=== PATIENT | female | born 1980 | race Caucasian/White ===

== ENCOUNTER 2020-05-05 20:25 | Inpatient (IN) | payer SELFPAY ==
[2020-05-05] MEDS ORDERED: Morphine 4 MG/ML VIAL ONE ×2 (21:04→22:30)
[2020-05-05] MEDS ORDERED: Lorazepam 2 MG/ML VIAL ONE (21:04)
[2020-05-05] MEDS ORDERED: Ketorolac Tromethamine 30 MG/ML VIAL ONE (21:04)
[2020-05-05] MEDS ORDERED: Ondansetron PF 4 MG/2 ML Vial ONE ×2 (21:04→22:46)
--- NOTE | 2020-05-05 21:15 | RAD ---
Chest AP view INDICATION: Chest pain with shortness of breath COMPARISON: None FINDINGS: Lungs: There is focal eventration of the hemidiaphragms. No acute airspace opacity is evident. Cardiac silhouette: The cardiomediastinal silhouette appears within normal limits. Pulmonary vasculature: Normal Pleural spaces: No pleural effusion or pneumothorax is demonstrated. Upper abdomen: No abnormality seen. Osseous structures: No acute osseous abnormality. Additional findings: None. IMPRESSION: No acute cardiopulmonary abnormality.
[2020-05-05 21:21] LABS: #Basophils 0.1 thou/uL (0.0-0.2); #Eosinphils 0.3 thou/uL (0.0-0.7); #Lymphocytes 5.4 thou/uL (1.20-3.40); %Basophils 0.8 % (0.0-1.0); %Eosinophils 1.5 % (0.0-10.0); %Monocytes 6.1 % (0.0-10.0); %Neutrophils 59.6 % (42.0-75.0); Hemoglobin 10.8 g/dL (12.0-16.0); Mean Corpuscular HGB CONC 33.2 g/dL (32.0-36.0); Mean Corpuscular Hemoglobin 26.4 pg (27.0-31.0); Mean Corpuscular Volume 79.6 fL (78.0-98.0); Mean Platelet Volume 7.1 fL (7.4-10.4); Platelet Count 541 thou/uL (130-400); Red Blood Cell (RBC) Count 4.07 mill/uL (4.20-5.40); White Blood Cell (WBC) Count 16.8 thou/uL (4.8-10.8)
[2020-05-05 21:31] LABS: Bilirubin Negative (Negative); Blood, Urine Negative (Negative); Clarity Clear (Clear); Glucose, Urine (Dipstick) Normal (Negative); Ketone, Urine Negative (Negative); Leukocyte Negative Leu/uL (Negative); Nitrite Negative (Negative); Protein, Urine (Dipstick) Negative (Neg-Trace); Specific Gravity, Urine 1.009 (1.002-1.036); Urobilinogen Normal mg/dL (Less than 2)
[2020-05-05 21:39] LABS: ALT (SGPT) 23 U/L (8-55); AST (SGOT) 29 U/L (5-34); Albumin 4.1 g/dL (3.5-5.0); Alkaline Phosphatase 78 U/L (40-110); Anion Gap 18 mmol/L (10-20); BUN (Urea Nitrogen) 15 mg/dL (7.0-18.7); Bilirubin, Total 0.3 mg/dL (0.2-1.2); CK (CPK) 532 U/L (29-168); Calc. Creatinine Clearance 0 mL/min (70-130); Calcium 8.8 mg/dL (7.8-10.44); Carbon Dioxide 15 mmol/L (22-29); Chloride 108 mmol/L (98-107); Estimated GFR-MDRD 62; Globulin 3.2 g/dL (2.4-3.5); Glucose 107 mg/dL (70-105); Lipase 16 U/L (8-78); Potassium 3.5 mmol/L (3.5-5.1); Protein, Total 7.3 g/dL (6.0-8.3); Sodium 137 mmol/L (136-145)
--- NOTE | 2020-05-05 21:56 | ULT ---
RIGHT UPPER QUADRANT ULTRASOUND CLINICAL HISTORY: Right upper quadrant pain. COMPARISON: None FINDINGS: Liver:Normal echotexture without focal mass. Intrahepatic bile ducts: No intrahepatic or extrahepatic biliary dilation.; Common bile duct: 3.6 mm. Gallbladder: No intraluminal stones are demonstrated. The gallbladder wall is mildly thickened. No pe richolecystic fluid is evident. Horton's sign:Positive Main portal vein:Patent with hepatopedal flow. Pancreas:Obscured by overlying bowel gas Right kidney: Right kidney measures 12.3 x 4.5 x 5.6 cm. No focal renal lesion or hydronephrosis. Additional findings: None. IMPRESSION: Mild gallbladder wall thickening with report of a sonographic Horton sign is nonspecific. No perichol ecystic fluid or intraluminal stones is demonstrated. Acalculus cholecystitis cannot be entirely excluded. A HIDA scan may be helpful for further evaluation.
[2020-05-06 02:13] VITALS: BMI 43.7
--- NOTE | 2020-05-06 02:13 | PDOC.HHP ---
Hospitalist HPI - History of Present Illness RUQ/Epigastric pain History of Present Illness: ADMISSION DATE: 05/06/2020 TIME OF ASSESSMENT: 0030 PRIMARY CARE PHYSICIAN: CHIEF COMPLAINT: Dr. Collins HPI: This is a 39-year-old woman who presents to the emergency department, brought by EMS, with increasing abdominal discomfort that started several months ago but has become constant and gradually worsening in the last week. Patient reports having issues with her gallbladder during previous pregnancies. Still has her gallbladder in place and was never told she had gallstones. In fact she states imaging done in the past was unremarkable. She has had chronic issues with intermittent right upper quadrant discomfort especially when she overeats or eats heavier meals. In the last several months the pain has been more frequent but manageable with her diet. Patient states since 1 week ago ago it has been essentially constant with no association to her meals. The pain is a 7 out of 10 in severity and primarily in the right upper quadrant and epigastric area. She also developed chills but denies any fevers. She has her temperature checked daily at work. She developed an episode of nausea and vomiting yesterday. Denies any hematemesis. She last moved her bowels yesterday morning and states that they were loose. No bright red blood per rectum. She reports having irregular bowel movements at baseline with her stools fluctuating between constipation and diarrhea. ED COURSE: In the emergency department she had an EKG that showed normal sinus rhythm. No ST changes or T wave abnormalities. Labs notable for a white cell count of 16.8, hemoglobin 10.8, hematocrit 32.4, platelets 541, neutrophils 59.6%. BUN 15, creatinine 1.01, GFR 62. LFTs unremarkable. Lipase normal. CK elevated at 532. Troponin negative. Urinalysis was done and unremarkable. Right upper quadrant ultrasound showed mild gallbladder wall thickening, positive Horton sign, HIDA scan recommended for further evaluation. Chest x-ray showed no acute cardiopulmonary abnormality. In the emergency department she received ondansetron 8 mg, morphine 4 mg IV x2 for pain as well as Toradol 30 mg IV. She has received 2 L of normal saline. For anxiety she was given 1 mg of Ativan IV. PAST MEDICAL HISTORY: Anxiety Morbid obesity Bipolar disorder, history of inpatient psychiatric admissions Depression Right sciatic pain Tobacco use Degenerative disc disease History of ovarian tumor/torsion requiring blood oophorectomy Hyperlipidemia PAST SURGICAL HISTORY: Right oophorectomy x3 SOCIAL HISTORY: Patient currently smokes 1 pack/day. Denies any alcohol consumption. She states she stopped drinking several months ago as it was making her depression worse. Denies any drug use. FAMILY HISTORY: Noncontributory ALLERGIES: No known drug allergies CURRENT MEDICATIONS: Abilify Lipitor Lyrica Protonix Zoloft Klonopin - Exam General Appearance: ill appearing (no severe distress, flushed appearance) General - other findings: Vital signs: Temp 98.4, HR 82, BP 135/78, RR 17, O2 sat 98% on room air Eye: PERRL, anicteric sclera ENT: normocephalic atraumatic, no oropharyngeal lesions Neck: supple Heart: RRR, normal peripheral pulses Respiratory: CTAB, no wheezes, no rales, no ronchi, normal chest expansion Gastrointestinal: soft, tender to palpation (in RUQ and epigastric regions.) Extremities: no edema Skin: normal turgor, no lesions, no rashes Neurological: cranial nerve grossly intact, normal sensation to touch Musculoskeletal: normal tone, normal strength, no muscle wasting Psychiatric: normal affect, normal behavior, A&O x 3 Hospitalist Results - Labs Result Diagrams: 05/05/20 20:57 05/05/20 20:57 Lab results: WBC 16.8 thou/uL (4.8-10.8) H 05/05/20 20:57 Hgb 10.8 g/dL (12.0-16.0) L 05/05/20 20:57 Hct 32.4 % (36.0-47.0) L 05/05/20 20:57 MCV 79.6 fL (78.0-98.0) 05/05/20 20:57 Plt Count 541 thou/uL (130-400) H 05/05/20 20:57 Neutrophils % 59.6 % (42.0-75.0) 05/05/20 20:57 Sodium 137 mmol/L (136-145) 05/05/20 20:57 Potassium 3.5 mmol/L (3.5-5.1) 05/05/20 20:57 Chloride 108 mmol/L (98-107) H 05/05/20 20:57 Carbon Dioxide 15 mmol/L (22-29) L 10/30/20 20:57 BUN 15 mg/dL (7.0-18.7) 05/05/20 20:57 Creatinine 1.01 mg/dL (0.6-1.1) 05/05/20 20:57 Glucose 107 mg/dL (70-105) H 05/05/20 20:57 Calcium 8.8 mg/dL (7.8-10.44) 05/05/20 20:57 Total Bilirubin 0.3 mg/dL (0.2-1.2) 05/05/20 20:57 AST 29 U/L (5-34) 05/05/20 20:57 ALT 23 U/L (8-55) 05/05/20 20:57 Alkaline Phosphatase 78 U/L (40-110) 05/05/20 20:57 Creatine Kinase 532 U/L (29-168) H 05/05/20 20:57 Troponin I 0.013 ng/mL (< 0.028) 05/05/20 22:03 Serum Total Protein 7.3 g/dL (6.0-8.3) 05/05/20 20:57 Albumin 4.1 g/dL (3.5-5.0) 05/05/20 20:57 Lipase 16 U/L (8-78) 05/05/20 20:57 Urine Ketones Negative mg/dL (Negative) 05/05/20 21:15 Urine Blood Negative (Negative) 05/05/20 21:15 Urine Nitrite Negative (Negative) 05/05/20 21:15 Ur Leukocyte Esterase Negative Maxime/uL (Negative) 05/05/20 21:15 Hospitalist H&P A/P - Problem (1) RUQ pain Code(s): R10.11 - RIGHT UPPER QUADRANT PAIN Status: Acute (2) Leukocytosis Code(s): D72.829 - ELEVATED WHITE BLOOD CELL COUNT, UNSPECIFIED Status: Acute (3) GERD (gastroesophageal reflux disease) Code(s): K21.9 - GASTRO-ESOPHAGEAL REFLUX DISEASE WITHOUT ESOPHAGITIS Status: Chronic (4) Hyperlipidemia Code(s): E78.5 - HYPERLIPIDEMIA, UNSPECIFIED Status: Chronic (5) Bipolar disorder Code(s): F31.9 - BIPOLAR DISORDER, UNSPECIFIED Status: Chronic (6) Anxiety Code(s): F41.9 - ANXIETY DISORDER, UNSPECIFIED Status: Chronic (7) Tobacco use Code(s): Z72.0 - TOBACCO USE Status: Chronic (8) Depression Code(s): F32.9 - MAJOR DEPRESSIVE DISORDER, SINGLE EPISODE, UNSPECIFIED Status: Chronic - Plan Plan: Repeat LFTs in the AM. General surgery consult placed. For HIDA scan in the AM. keep NPO. Continue IV fluids. Lipid Panel with AM labs Resume home medications once verified. DVT Prophylaxis: with mechanical SCDs. GI prophylaxis: Resume protonix 40 mg BID. CODE STATUS: FULL. Tobacco cessation counseling. Check serum bhcg. Resume home medications once verified.
[2020-05-06] MEDS: Sodium Chloride 0.9% 1,000 ML IV SCH ×2 (02:15→16:01)
[2020-05-06] MEDS: Ketorolac Tromethamine 30 MG/ML VIAL IVP SCH ×3 (04:28→16:05)
[2020-05-06] MEDS ORDERED: Ketorolac Tromethamine 30 MG/ML VIAL IVP SCH (06:00)
[2020-05-06] MEDS: Nicotine 14 MG PATCH TD SCH (06:38)
[2020-05-06 06:47] LABS: #Basophils 0.1 thou/uL (0.0-0.2); #Eosinphils 0.3 thou/uL (0.0-0.7); #Lymphocytes 4.2 thou/uL (1.20-3.40); #Monocytes 0.5 thou/uL (0.11-0.59); #Neutrophils 4.8 thou/uL (1.40-6.50); %Eosinophils 2.6 % (0.0-10.0); %Lymphocytes 42.7 % (21.0-51.0); %Neutrophils 48.8 % (42.0-75.0); Mean Corpuscular HGB CONC 32.7 g/dL (32.0-36.0); Mean Corpuscular Hemoglobin 25.7 pg (27.0-31.0); Mean Corpuscular Volume 78.6 fL (78.0-98.0); Mean Platelet Volume 7.1 fL (7.4-10.4); Platelet Count 519 thou/uL (130-400); RBC Distribution Width 15.7 % (11.5-14.5); Red Blood Cell (RBC) Count 3.89 mill/uL (4.20-5.40); White Blood Cell (WBC) Count 9.8 thou/uL (4.8-10.8)
[2020-05-06 07:07] LABS: BHCG - Serum Negative (NEGATIVE); Lactic Acid 0.5 mmol/L (0.5-2.2); Pregs Control Bar Appear? YES (CONTROL BAR)
[2020-05-06 07:08] LABS: Pregs Control Background? CLEAR/WHITE (CLR/WHITE)
[2020-05-06 07:17] LABS: ALT (SGPT) 22 U/L (8-55); AST (SGOT) 19 U/L (5-34); Albumin 3.8 g/dL (3.5-5.0); Alkaline Phosphatase 70 U/L (40-110); Anion Gap 14 mmol/L (10-20); BUN (Urea Nitrogen) 16 mg/dL (7.0-18.7); Bilirubin, Total 0.2 mg/dL (0.2-1.2); Calc. Creatinine Clearance 168 mL/min (70-130); Calcium 8.1 mg/dL (7.8-10.44); Carbon Dioxide 20 mmol/L (22-29); Chloride 111 mmol/L (98-107); Cholesterol 130 mg/dl (< 200 Desired); Estimated GFR-MDRD 69; Globulin 2.8 g/dL (2.4-3.5); Glucose 89 mg/dL (70-105); HDL Cholesterol 26 mg/dL (>60 Neg Risk); LDL Cholesterol, Calculated 60 mg/dL; Lipase 15 U/L (8-78); Potassium 3.4 mmol/L (3.5-5.1); Protein, Total 6.6 g/dL (6.0-8.3); Sodium 142 mmol/L (136-145); Triglycerides 221 mg/dL (Less than 150)
[2020-05-06] MEDS: Morphine 2 MG/ML VIAL SLOW IVP PRN ×3 (08:41→17:57)
[2020-05-06] MEDS: Pregabalin 75 MG CAP PO SCH ×2 (08:47→20:06)
[2020-05-06] MEDS ORDERED: Famotidine/PF 20 mg/2ml Vial SLOW IVP SCH (09:00)
[2020-05-06] MEDS: Potassium Chloride 10 MEQ in Premix Bag 1 BAG IVPB SCH ×2 (12:31→13:30)
[2020-05-06] MEDS ORDERED: Acetaminophen 500 MG TAB PO PRN (13:05)
--- NOTE | 2020-05-06 14:06 | PDOC.CONS ---
- Consultation Encounter Date: 05/06/20 Encounter Time: 10:40 CHIEF COMPLAINT: Abdominal pain HISTORY OF PRESENT ILLNESS: 39-year-old female presents with abdominal pain. The pain is characterized as sharp and stabbing and located in the epigastrium and right upper quadrant. There was reported to radiate towards the back and is rated as 7/10 on a pain scale. Is associated with nausea, vomiting, and chills; however, she denies any subjective fevers (she is checked daily for work). She reports that this has been going on for over a year. Over the last 2 months it has become more frequent and more severe. Previously, she would have short episodes that were related to larger meals that would resolve spontaneously. REVIEW OF SYSTEMS: General: Denies recent weight changes, fever, or chills. Eyes: Denies visual changes, pain, or irritation ENT: Denies changes in hearing, nasal discharge, or sore throat Cardiovascular: Denies chest pain, palpitations, shortness of breath, or edema. Respiratory: Denies cough, shortness of breath, or wheezing Gastrointestinal: Denies abdominal pain, nausea, or vomiting. Genitourinary: Denies frequent urination or dysuria Musculoskeletal: Endorses arthralgia related to known degenerative joint disease Integumentary: Denies abnormal rashes, sores, or skin lesions Neurological: Denies numbness, tingling, or weakness. Psychiatric: Denies new onset anxiety or depression Endocrine: Denies temperature intolerances, polyuria, or excessive thirst Hematologic: Denies abnormal bruising or bleeding PAST MEDICAL HISTORY: Morbid obesity Bipolar disorder Degenerative joint disease Hyperlipidemia PAST SURGICAL HISTORY: Nephrectomy section x3 FAMILY HISTORY: Paternal end-stage renal disease SOCIAL HISTORY Current smoker, denies illicit drug use, denies alcohol consumption. ALLERGIES: No known drug allergies PHYSICAL EXAM: Vital Signs: HR 77 BP 121/80 T 98.1 RR 18 SpO2 98% in room air General: Alert and oriented, no acute distress. Morbidly obese ENT: Sclera anicteric, pupils equal and reactive, mucous membranes moist Neck: No jugular venous distention, trachea midline Cardiovascular: Regular rate and rhythm Pulmonary: Clear to auscultation Abdominal: Soft, nondistended, vague tenderness to palpation in the epigastrium and upper abdomen. Genitourinary: Normal anatomy Rectal: Deferred Integument: No abnormal rashes or lesions Musculoskeletal: No gross deformities or edema, normal range of motion LABORATORY: Laboratory analysis reviewed and is significant for a leukocytosis of 16.8. She also has thrombocytosis at 541. IMAGING: Chest x-ray and abdominal ultrasound reviewed as well as radiologist interpretation. Chest x-ray demonstrates no acute abnormalities. Gallbladder demonstrates mild gallbladder wall thickening with no evidence of acute cholecystitis nor cholelithiasis. ASSESSMENT: 39-year-old female with upper abdominal pain of uncertain etiology. PLAN: Recommend HIDA scanning to evaluate for acute cholecystitis or biliary dyskinesia. We will continue to follow. Discussed cholecystectomy for biliary dyskinesia, including the relative risks and benefits. Risks discussed included bleeding, infection, damage to adjacent structures, bile leak, and injury to the common bile duct. Informed consent was obtained if surgery is necessary.
--- NOTE | 2020-05-06 14:28 | PDOC.EVN ---
Event Note - Event Note Event Note: Patient with persistent RUQ pain. Better than on admit. Seen by surgery and needs a HIDA scan. Will need to stay another midnight for this workup to see if has acute cholecystitis. Will change to inpatient.
[2020-05-06] MEDS ORDERED: Ondansetron ODT 4 MG TAB PO PRN (18:36)
[2020-05-06] MEDS: Ondansetron PF 4 MG/2 ML Vial IVP PRN (18:45)
[2020-05-06] MEDS ORDERED: Aripiprazole 10 MG TAB PO SCH (21:00)
[2020-05-06] MEDS ORDERED: clonazePAM 0.5 MG TAB PO SCH (21:00)
[2020-05-06] MEDS ORDERED: Atorvastatin Calcium 40 MG TAB PO SCH (21:00)
[2020-05-07] MEDS: Ketorolac Tromethamine 30 MG/ML VIAL IVP SCH ×4 (00:25→16:19)
[2020-05-07] MEDS: Morphine 2 MG/ML VIAL SLOW IVP PRN ×2 (01:45→11:41)
[2020-05-07] MEDS: Nicotine 14 MG PATCH TD SCH (05:36)
[2020-05-07] MEDS: Sodium Chloride 0.9% 1,000 ML IV SCH ×2 (05:38→10:23)
[2020-05-07] MEDS: Ondansetron PF 4 MG/2 ML Vial IVP PRN ×2 (05:45→11:46)
[2020-05-07] MEDS: Pregabalin 75 MG CAP PO SCH (09:00)
[2020-05-07] MEDS ORDERED: Loratadine 10 MG TAB PO PRN (13:20)
--- NOTE | 2020-05-07 14:28 | NM ---
HIDA SCAN: Date: 05-07-2020 PROVIDED CLINICAL HISTORY: Right upper quadrant pain. FINDINGS: 2.5 micrograms CCK was given intravenously 30 minutes prior to administration of 5.5 mCi Technetium 9 9M labeled Mebrofenin intravenously. Subsequently, anterior planar imaging was performed after the ab domen for 60 minutes. There is normal hepatic extraction of radiotracer with gallbladder and bowel activity demonstrated in a normal amount of time. Subsequently and administration of an additional 2.5 micrograms of CCK anal og, there is qualitatively normal extrusion of radiotracer from the gallbladder into bowel with calcu lated gallbladder ejection fraction of 87%. IMPRESSION: 1. No evidence for common or cystic duct obstruction. 2. Normal gallbladder ejection fraction. POS: ROSALIO
--- NOTE | 2020-05-07 16:12 | PDOC.BPN ---
- Brief Progress Note Encounter Date: 05/07/20 No acute events overnight. Tolerated some oral intake with increasing pain and nausea. HIDA scan performed and shows no obstruction of the cystic duct with a normal ejection fraction. EXAM: VS: T 98.1 HR 81 BP 104/69 RR 20 General: Alert and oriented, no acute distress, resting comfortably Pulmonary: No dyspnea or difficulty breathing Abdomen: Soft, non-distended, vague tenderness to palpation CV: Regular rate and rhythm, palpable distal pulses Extremities: No edema I/O: Positive oral intake 3 voids UOP LABORATORY / IMAGING: White blood cell count 9.8 hemoglobin 10 potassium 3.4 (May 06) PLAN: 39-year-old female with right upper quadrant pain of uncertain etiology. HIDA scan negative. Rare etiology may be sphincter of Oddi dysfunction given the biliary nature of her complaints. No surgical intervention planned at this time. Consider consultation with gastroenterology. We will sign off for now, please call with any further questions.
[2020-05-07 20:03] VITALS: BP 154/83; TEMP 99.1
[2020-05-07] MEDS ORDERED: hydrOXYzine 25 MG TAB PO PRN (21:00)
--- NOTE | 2020-05-07 21:54 | DIS ---
DATE OF ADMISSION: 05/05/2020 DATE OF DISCHARGE: 05/07/2020 DISCHARGE DIAGNOSES: 1. Abdominal pain, question of biliary dyskinesia. 2. Leukocytosis, resolved. 3. Gastroesophageal reflux disease. 4. Morbid obesity. 5. Bipolar disorder. 6. Hyperlipidemia. 7. Tobacco abuse. 8. Depression. CONSULTATIONS: Dr. Mello with General Surgery Service. PERTINENT LABORATORY AND X-RAY FINDINGS: Potassium ranged between 3.4 to 3.5, carbon dioxide level ranged between 15 to 20. Lactic acid level 0.5. LFTs within normal limits. Total CK of 532. Total cholesterol 130, triglycerides 221, HDL 26, LDL 60. Lipase ranged between 15-16. Serum beta-hCG negative. CBC showed a white blood cell count ranging between 9.8 to 16.8, hemoglobin ranged between 10.0 to 10.8. Urinalysis negative. Portable chest x-ray dated 05/05/2020, showed no acute cardiopulmonary process. Abdominal ultrasound dated 05/05/2020, showed mild gallbladder wall thickening. No cholecystitis or intraluminal stones. HIDA scan on 05/07/2020, showed no evidence for common or cystic duct obstruction. The gallbladder ejection fraction is 87%. HOSPITAL COURSE: The patient was initially admitted after presenting with right upper quadrant abdominal pain. The patient underwent extensive evaluation including metabolic screening as well as radiographic studies with right upper quadrant ultrasound showing mild gallbladder wall thickening. The patient underwent evaluation by the General Surgery Service, undergoing a HIDA scan. No specific evidence of obstructive process as stated previously and the patient clinically, symptomatically improved with supportive management. The patient was initially kept n.p.o. status and given maintenance IV fluids. The patient also continued on Protonix 40 mg b.i.d. Overall, the patient did remain clinically stable without definitive workup showing acute pathological process. Potential for mild biliary dyskinesia as well as fatty liver as an etiology of patient's abdominal pain. I have examined the patient at the time of discharge and discussed followup instructions. The patient verbalizes understanding and agreement, ready for discharge on 05/07/2020. DISCHARGE MEDICATIONS: 1. Levaquin 500 mg one tablet p.o. daily x7 days. 2. Tramadol 50 mg p.o. q.6 hours p.r.n. pain #20. 3. Abilify 10 mg p.o. at bedtime. 4. Hydroxyzine 25 mg one tablet p.o. daily p.r.n. 5. Klonopin 0.5 mg p.o. at bedtime. 6. Lipitor 40 mg p.o. at bedtime. 7. Lyrica 75 mg p.o. b.i.d. 8. Protonix 40 mg p.o. b.i.d. 9. [place]'s Wort 300 mg p.o. at bedtime. 10. Thiamine 250 mg p.o. daily. 11. Zoloft 50 mg p.o. at bedtime. FOLLOWUP: The patient to follow up with her primary care provider, Olegario Collins. CONDITION ON DISCHARGE: Stable. ACTIVITY: Ad-russell. DIET: Heart healthy and low-fat. CODE STATUS: Full. DISPOSITION: To home on 05/07/2020. TIME SPENT: Total time preparing and coordinating discharge, 34 minutes. Job ID: [id number]
[2020-05-08 00:12] LABS: SARS-CoV-2 MS2 Positive; SARS-CoV-2 N Gene Negative; SARS-CoV-2 S Gene Negative; SARS-CoV-2 by NAA Not Detected (Not Detected); SARS-CoV-2 orf1ab Negative
[2020-05-08] MEDS ORDERED: Thiamine 100 MG TAB PO SCH (09:00)
== END 2020-05-07 17:24 | disposition home or self-care (01) | DRG 445 ==
LOC: ERS 20:25 → T4-B 22:58 → OBSVTOIN 22:58
PROVIDERS: ADMIT Internal Medicine; ATTEND Family Medicine
DX: K82.8 Other specified diseases of gallbladder (principal); E87.2 Acidosis; Z68.41 Body mass index [BMI] 40.0-44.9, adult; K76.0 Fatty (change of) liver, not elsewhere classified; E78.5 Hyperlipidemia, unspecified; F41.9 Anxiety disorder, unspecified; F31.9 Bipolar disorder, unspecified; E66.01 Morbid (severe) obesity due to excess calories; F17.200 Nicotine dependence, unspecified, uncomplicated; D72.829 Elevated white blood cell count, unspecified; Z79.899 Other long term (current) drug therapy; Z20.828 Contact with and (suspected) exposure to other viral communicable diseases
CPT/HCPCS: 36415; 71045; 76705; 78227; 80053; 80061; 81003; 82550; 83605; 83690; 84484; 84703; 85025; 87635; 93005; 96374; 96375; 96376; A9537; G0378; J1885; J2060; J2270; J2405; J3480; U0003

== ENCOUNTER 2020-08-06 11:13 | Emergency (ER) | payer SELFPAY ==
--- NOTE | 2020-08-06 11:49 | RAD ---
RADIOGRAPH CHEST 1 VIEW: DATE: 08/06/2020 HISTORY: 40-year-old female with cough FINDINGS: The visualized lung lambert are clear. The cardiomediastinal silhouette and hilar shadows are normal. The lateral costophrenic angles are sharp. The osseous structures appear normal. There is no pneumothorax. IMPRESSION: Negative.
[2020-08-06] MEDS ORDERED: Pantoprazole 40 MG VIAL ONE (11:51)
[2020-08-06] MEDS ORDERED: Morphine 4 MG/ML VIAL ONE ×2 (11:51→14:02)
[2020-08-06] MEDS ORDERED: Ondansetron PF 4 MG/2 ML Vial ONE (11:51)
--- NOTE | 2020-08-06 12:02 | ULT ---
ULTRASOUND ABDOMEN LIMITED: (RIGHT UPPER QUADRANT) DATE: 08/06/2020 HISTORY: Right upper quadrant abdominal pain in 40-year-old female FINDINGS: Slightly limited due to body habitus. Gallbladder: Normal wall thickness. No gallstones identified. No pericholecystic fluid. Liver: Normal parenchymal echogenicity. Right kidney: No hydronephrosis. Pancreas: Visualized, with no gross sonographic abnormality identified (although ultrasound is relati vely insensitive for the detection of pancreatic pathology compared to CT and MRI.). Common duct caliber: 3 mm. IMPRESSION: Negative
[2020-08-06 12:21] LABS: #Basophils 0.1 thou/uL (0.0-0.2); #Eosinphils 0.2 thou/uL (0.0-0.7); #Lymphocytes 2.7 thou/uL (1.20-3.40); #Monocytes 0.4 thou/uL (0.11-0.59); #Neutrophils 7.2 thou/uL (1.40-6.50); %Basophils 0.8 % (0.0-1.0); %Eosinophils 2.2 % (0.0-10.0); %Lymphocytes 25.8 % (21.0-51.0); %Monocytes 3.5 % (0.0-10.0); %Neutrophils 67.7 % (42.0-75.0); Hemoglobin 11.2 g/dL (12.0-16.0); Mean Corpuscular HGB CONC 32.4 g/dL (32.0-36.0); Mean Corpuscular Hemoglobin 27.2 pg (27.0-31.0); Mean Corpuscular Volume 83.9 fL (78.0-98.0); Mean Platelet Volume 7.1 fL (7.4-10.4); Platelet Count 494 thou/uL (130-400); RBC Distribution Width 14.1 % (11.5-14.5); Red Blood Cell (RBC) Count 4.13 mill/uL (4.20-5.40); White Blood Cell (WBC) Count 10.6 thou/uL (4.8-10.8)
[2020-08-06 12:36] LABS: ALT (SGPT) 15 U/L (8-55); AST (SGOT) 17 U/L (5-34); Albumin 4.3 g/dL (3.5-5.0); Alkaline Phosphatase 74 U/L (40-110); Anion Gap 13 mmol/L (10-20); BUN (Urea Nitrogen) 16 mg/dL (7.0-18.7); Bilirubin, Total 0.5 mg/dL (0.2-1.2); Calc. Creatinine Clearance 0 mL/min (70-130); Calcium 8.9 mg/dL (7.8-10.44); Carbon Dioxide 20 mmol/L (22-29); Chloride 109 mmol/L (98-107); Globulin 3.2 g/dL (2.4-3.5); Glucose 86 mg/dL (70-105); Lipase 10 U/L (8-78); Potassium 3.9 mmol/L (3.5-5.1); Protein, Total 7.5 g/dL (6.0-8.3); Sodium 138 mmol/L (136-145)
[2020-08-06 13:06] LABS: Bacteria/HPF None Seen HPF (None Seen); Bilirubin Negative (Negative); Blood, Urine 2+ (Negative); Clarity Clear (Clear); Glucose, Urine (Dipstick) Normal (Negative); Ketone, Urine Negative (Negative); Leukocyte Negative Leu/uL (Negative); Nitrite Negative (Negative); Protein, Urine (Dipstick) Negative (Neg-Trace); RBC/HPF 0-3 HPF (0-3); Specific Gravity, Urine 1.025 (1.002-1.036); Urobilinogen Normal mg/dL (Less than 2); WBC/HPF 0-3 HPF (0-3)
[2020-08-06] MEDS ORDERED: Ketorolac Tromethamine 30 MG/ML VIAL ONE (14:02)
[2020-08-06] MEDS ORDERED: Acetaminophen 325 MG TAB ONE (14:02)
--- NOTE | 2020-08-06 14:24 | CT ---
CT ABDOMEN NONCONTRAST CT PELVIS NONCONTRAST: (Urolithiasis protocol) DATE: 08/06/2020 HISTORY: 40-year-old female with right upper quadrant abdominal pain TECHNIQUE: IV injection of iodinated contrast media: None Oral contrast media: None FINDINGS: Other than for urolithiasis, the lack of IV and oral contrast limits the evaluation. Gallbladder: No excessive distention, mural thickening, or pericholecystic edema. Liver: No contour abnormalities. Spleen: No splenomegaly. Pancreas: No contour abnormalities. Adrenals: No mass. Kidneys: No nephrolithiasis or overt hydronephrosis. Ureters: No calculi. Bladder: No calculi. Abdominal aorta: No aneurysm. Small bowel: No dilation. Colon: No adjacent fat stranding. Appendix: Mid segment of lumen has hyperdense material. Caliber 8 mm at that segment. No adjacent fat stranding. Free air: None Free fluid: None IMPRESSION: 1) no definite acute findings. 2) no urolithiasis or obstructive uropathy. 3) evidence for appendicoliths, but no convincing evidence of acute appendicitis.
[2020-08-06] MEDS ORDERED: HYDROcodone/Acetaminophen 5/325 mg Tablet ONE (15:00)
== END 2020-08-06 15:05 | disposition home or self-care (01) ==
LOC: ERS 11:13
DX: R10.13 Epigastric pain (principal); R10.11 Right upper quadrant pain; E78.5 Hyperlipidemia, unspecified; F17.210 Nicotine dependence, cigarettes, uncomplicated; Z79.01 Long term (current) use of anticoagulants; Z79.899 Other long term (current) drug therapy
CPT/HCPCS: 71045; 74176; 76705; 80053; 81003; 81015; 83605; 83690; 85025; 93005; 96361; 96374; 96375; 96376; C9113; J1885; J2270; J2405

== ENCOUNTER 2020-10-17 08:07 | Emergency (ER) | payer SELFPAY ==
[2020-10-17] MEDS ORDERED: Piperacillin/Tazobactam 4.5 GM VIAL ONE (16:58)
[2020-10-17] MEDS ORDERED: Morphine 4 MG/ML VIAL ONE (17:10)
== END 2020-10-17 09:57 | disposition left against medical advice (07) ==
LOC: ERS 08:07
DX: Z53.21 Procedure and treatment not carried out due to patient leaving prior to being seen by health care provider (principal)
CPT/HCPCS: J2270; J2543

== ENCOUNTER 2020-10-17 13:41 | Observation (INO) | payer BC, SELFPAY ==
[~2020-10-17 13:41] MED LIST: Iopamidol-370 76% 500 ML 1 ML ONE
[2020-10-17 15:53] LABS: #Basophils 0.1 thou/uL (0.0-0.2); #Eosinphils 0.3 thou/uL (0.0-0.7); #Lymphocytes 1.3 thou/uL (1.20-3.40); #Monocytes 1.2 thou/uL (0.11-0.59); #Neutrophils 13.9 thou/uL (1.40-6.50); %Basophils 0.3 % (0.0-1.0); %Eosinophils 1.7 % (0.0-10.0); %Lymphocytes 7.6 % (21.0-51.0); %Neutrophils 83.4 % (42.0-75.0); Hemoglobin 12.1 g/dL (12.0-16.0); Mean Corpuscular HGB CONC 33.5 g/dL (32.0-36.0); Mean Corpuscular Volume 86.6 fL (78.0-98.0); Mean Platelet Volume 7.2 fL (7.4-10.4); Platelet Count 444 thou/uL (130-400); Red Blood Cell (RBC) Count 4.19 mill/uL (4.20-5.40); White Blood Cell (WBC) Count 16.7 thou/uL (4.8-10.8)
[2020-10-17] MEDS ORDERED: Ondansetron PF 4 MG/2 ML Vial ONE ×4 (15:57→21:36)
[2020-10-17] MEDS ORDERED: Morphine 4 MG/ML VIAL ONE (15:57)
[2020-10-17 16:04] LABS: BHCG - Serum Negative (NEGATIVE); Pregs Control Background? CLEAR/WHITE (CLR/WHITE); Pregs Control Bar Appear? YES (CONTROL BAR)
[2020-10-17 16:21] LABS: ALT (SGPT) 12 U/L (8-55); AST (SGOT) 18 U/L (5-34); Albumin 4.3 g/dL (3.5-5.0); Alkaline Phosphatase 109 U/L (40-110); Anion Gap 16 mmol/L (10-20); BUN (Urea Nitrogen) 14 mg/dL (7.0-18.7); Bilirubin, Total 1.1 mg/dL (0.2-1.2); Calc. Creatinine Clearance 0 mL/min (70-130); Calcium 9.4 mg/dL (7.8-10.44); Carbon Dioxide 19 mmol/L (22-29); Chloride 106 mmol/L (98-107); Globulin 3.7 g/dL (2.4-3.5); Glucose 95 mg/dL (70-105); Lipase 4 U/L (8-78); Potassium 3.3 mmol/L (3.5-5.1); Sodium 138 mmol/L (136-145)
[2020-10-17 18:24] LABS: SARS-CoV-2 NAA Rapid Test Not Detected (NotDetected)
[2020-10-17] MEDS ORDERED: Bupivacaine 0.25% HCL 30 ML VIAL ONE (19:02)
[2020-10-17] MEDS ORDERED: Lidocaine 1% w/Epinephrine 1:100K 20 ML VIAL ONE (19:02)
[2020-10-17] MEDS ORDERED: Fentanyl 100 MCG/2 ML VIAL ONE ×3 (19:12→22:07)
[2020-10-17] MEDS ORDERED: Lidocaine 1% PF 5 ML VIAL ONE (19:50)
[2020-10-17] MEDS ORDERED: Rocuronium Bromide 10 MG/ML (10ML VIAL) ONE (19:50)
[2020-10-17] MEDS ORDERED: PROPOFOL 200 MG/20 ML VIAL ONE (19:50)
[2020-10-17] MEDS ORDERED: Succinylcholine 200 MG/10 ml SYRINGE FS ONE (19:50)
[2020-10-17] MEDS ORDERED: Glycopyrrolate 0.2 MG/ML 5 ML SYRINGE ONE (19:50)
[2020-10-17] MEDS ORDERED: Dextrose 5% in Water 1,000 ML IV PRN (21:31)
[2020-10-17] MEDS ORDERED: hydrALAZINE 20 MG/ML VIAL SLOW IVP PRN (21:31)
[2020-10-17] MEDS ORDERED: Dextrose 50% Abboject 50 ML SYRINGE SLOW IVP PRN (21:31)
[2020-10-17] MEDS ORDERED: Ondansetron PF 4 MG/2 ML Vial IVP PRN (21:31)
[2020-10-17] MEDS ORDERED: Promethazine HCl 25 MG/ML VIAL IM PRN (21:31)
[2020-10-17] MEDS ORDERED: traMADol HCl 50 MG TAB PO PRN ×2 (21:48)
[2020-10-17] MEDS: Acetaminophen 500 MG TAB PO SCH (23:23)
[2020-10-17] MEDS: Lactated Ringer's 1,000 ML IV SCH (23:23)
[2020-10-17] MEDS: Ketorolac Tromethamine 30 MG/ML VIAL IVP SCH (23:24)
[2020-10-17] MEDS: Piperacillin/Tazobactam 3.375 GM in Sodium Chloride 0.9% 100 ML IVPB SCH (23:25)
[2020-10-18] MEDS: Acetaminophen 500 MG TAB PO SCH (05:21)
[2020-10-18] MEDS: Piperacillin/Tazobactam 3.375 GM in Sodium Chloride 0.9% 100 ML IVPB SCH (05:21)
[2020-10-18] MEDS: Ketorolac Tromethamine 30 MG/ML VIAL IVP SCH (05:22)
[2020-10-18] MEDS: Lactated Ringer's 1,000 ML IV SCH (05:28)
[2020-10-18 06:27] LABS: #Lymphocytes 0.7 thou/uL (1.20-3.40); #Monocytes 0.6 thou/uL (0.11-0.59); #Neutrophils 14.5 thou/uL (1.40-6.50); %Basophils 0.1 % (0.0-1.0); %Eosinophils 0.2 % (0.0-10.0); %Lymphocytes 4.2 % (21.0-51.0); %Monocytes 3.7 % (0.0-10.0); Hemoglobin 10.7 g/dL (12.0-16.0); Mean Corpuscular HGB CONC 32.1 g/dL (32.0-36.0); Mean Corpuscular Hemoglobin 27.9 pg (27.0-31.0); Mean Corpuscular Volume 87.1 fL (78.0-98.0); Mean Platelet Volume 7.4 fL (7.4-10.4); Platelet Count 418 thou/uL (130-400); RBC Distribution Width 13.1 % (11.5-14.5); Red Blood Cell (RBC) Count 3.83 mill/uL (4.20-5.40); White Blood Cell (WBC) Count 15.8 thou/uL (4.8-10.8)
[2020-10-18 06:46] LABS: Anion Gap 15 mmol/L (10-20); BUN (Urea Nitrogen) 14 mg/dL (7.0-18.7); Calc. Creatinine Clearance 0 mL/min (70-130); Calcium 8.8 mg/dL (7.8-10.44); Carbon Dioxide 20 mmol/L (22-29); Chloride 109 mmol/L (98-107); Glucose 115 mg/dL (70-105); Potassium 3.7 mmol/L (3.5-5.1); Sodium 140 mmol/L (136-145)
[2020-10-18 07:25] VITALS: BP 105/70; TEMP 98.5
[2020-10-18] MEDS ORDERED: Famotidine/PF 20 mg/2ml Vial SLOW IVP SCH (09:00)
[2020-10-18] MEDS ORDERED: Enoxaparin Sodium 40 MG/0.4 ML SYRINGE SC SCH (09:00)
[2020-10-18] MEDS ORDERED: Amoxicillin/Potassium Clav 875 MG TAB PO SCH (09:00)
[2020-10-18] MEDS ORDERED: Famotidine 20 MG TAB PO SCH (09:00)
[2020-10-18] MEDS ORDERED: Saccharomyces boulardii 250 MG CAP PO SCH (09:00)
[2020-10-18] MEDS ORDERED: clonazePAM 0.5 MG TAB PO SCH (21:00)
== END 2020-10-18 10:45 | disposition home or self-care (01) ==
LOC: ERS 13:41 → SDC/OP 19:55 → T4-B 21:53
PROVIDERS: ADMIT Surgery; ATTEND Surgery
PROC: 0DTJ4ZZ Resection of Appendix, Percutaneous Endoscopic Approach (ICD-10-PCS; principal; 2020-10-17)
DX: K35.33 Acute appendicitis with perforation, localized peritonitis, and gangrene, with abscess (principal); G89.29 Other chronic pain; M54.9 Dorsalgia, unspecified; E78.5 Hyperlipidemia, unspecified; F17.210 Nicotine dependence, cigarettes, uncomplicated; E66.01 Morbid (severe) obesity due to excess calories; Z79.899 Other long term (current) drug therapy; Z20.822 Contact with and (suspected) exposure to COVID-19
CPT/HCPCS: 0240U; 36415; 74177; 80048; 80053; 83690; 84703; 85025; 88304; 96365; 96372; 96375; 96376; G0378; J1650; J1885; J2270; J2405; J2543; J2704; J3010; J3490; Q9967; S0020

== ENCOUNTER 2021-08-11 01:43 | Emergency (ER) | payer BC ==
[2021-08-11] MEDS ORDERED: Acetaminophen 500 MG TAB ONE (02:12)
[2021-08-11] MEDS ORDERED: Ketorolac Tromethamine 30 MG/ML VIAL ONE (03:26)
== END 2021-08-11 03:55 | disposition home or self-care (01) ==
LOC: ERS 01:43
DX: S39.012A Strain of muscle, fascia and tendon of lower back, initial encounter (principal); I10 Essential (primary) hypertension; F17.210 Nicotine dependence, cigarettes, uncomplicated; X50.9XXA Other and unspecified overexertion or strenuous movements or postures, initial encounter
CPT/HCPCS: 96372; J1885

== ENCOUNTER 2021-10-10 03:44 | Emergency (ER) | payer BC ==
[2021-10-10] MEDS ORDERED: Ondansetron PF 4 MG/2 ML Vial ONE (04:30)
[2021-10-10] MEDS ORDERED: Ketorolac Tromethamine 30 MG/ML VIAL ONE (04:30)
[2021-10-10 04:59] LABS: #Basophils 0.1 thou/uL (0.0-0.2); #Eosinphils 0.3 thou/uL (0.0-0.7); #Lymphocytes 3.2 thou/uL (1.20-3.40); #Monocytes 0.7 thou/uL (0.11-0.59); #Neutrophils 6.7 thou/uL (1.40-6.50); %Eosinophils 2.5 % (0.0-10.0); %Lymphocytes 29.3 % (21.0-51.0); %Neutrophils 61.2 % (42.0-75.0); Hemoglobin 11.6 g/dL (12.0-16.0); Mean Corpuscular HGB CONC 34.3 g/dL (32.0-36.0); Mean Corpuscular Volume 84.4 fL (78.0-98.0); Platelet Count 220 thou/uL (130-400); RBC Distribution Width 13.6 % (11.5-14.5); Red Blood Cell (RBC) Count 4.01 mill/uL (4.20-5.40); White Blood Cell (WBC) Count 10.9 thou/uL (4.8-10.8)
[2021-10-10 05:23] LABS: ALT (SGPT) 20 U/L (8-55); AST (SGOT) 22 U/L (5-34); Albumin 4.1 g/dL (3.5-5.0); Alkaline Phosphatase 92 U/L (40-110); Anion Gap 16 mmol/L (10-20); BUN (Urea Nitrogen) 18 mg/dL (7.0-18.7); Bilirubin, Total Less than 0.2 mg/dL (0.2-1.2); Calc. Creatinine Clearance 0 mL/min (70-130); Calcium 8.9 mg/dL (7.8-10.44); Carbon Dioxide 18 mmol/L (22-29); Chloride 105 mmol/L (98-107); Globulin 3.3 g/dL (2.4-3.5); Glucose 98 mg/dL (70-105); Lipase 26 U/L (8-78); Potassium 4.2 mmol/L (3.5-5.1); Protein, Total 7.4 g/dL (6.0-8.3); Sodium 135 mmol/L (136-145)
[2021-10-10] MEDS ORDERED: Dicyclomine 20 MG/2 ML VIAL ONE (05:35)
[2021-10-10] MEDS ORDERED: Sucralfate 1 GM/10 ML UDCUP ONE (06:11)
== END 2021-10-10 06:28 | disposition home or self-care (01) ==
LOC: ERS 03:44
DX: R10.11 Right upper quadrant pain (principal); F17.210 Nicotine dependence, cigarettes, uncomplicated
CPT/HCPCS: 36415; 76705; 80053; 83690; 85025; 96372; 96374; 96375; J0500; J1885; J2405